=== PATIENT | male | born 1995 | race Caucasian/White ===

== ENCOUNTER 2025-03-20 11:24 | Emergency (ER) | payer MEDICAID ==
[~2025-03-20] VITALS: Ht 180.3 cm; Wt 109.8 kg
[~2025-03-20 11:24] MED LIST: HYDR-4383 PO
[2025-03-20 11:25] VITALS: BP 168/95; PULSE 77; RESP 18; TEMP 97.9; O2SAT 99
--- NOTE | 2025-03-20 11:34 | Physician Documentation ---
History of Present Illness ~ Chief Complaint: Flu Symptoms Stated Complaint: FLU SYMPTOMS Time Seen by MD: 11:34 Primary Medical Doctor: none HPI 29-year-old male presents to the emergency department for evaluation of cough fever congestion diarrhea mild nausea x4 days. Patient reports that he has had intermittent fevers and chills recent exposure to COVID. Medication Reconciliation Allergies: Coded Allergies: No Known Allergies (Unverified , 03/20/25) Scheduled PRN Hydrocodone/Acetaminophen ([place] 5-325 Tablet), 1 TABLET PO Q4H PRN for pain Past Medical History Past Medical History: No Pertinent History Past Surgical History: no surgical history Alcohol Use: Occasionally Drug Use: none Lives In: Home Occupation: unemployed Review of Systems ROS As stated above in the HPI, otherwise all systems are reviewed and negative. Physical Exam Vital Signs: Temperature: 97.9, Source: Temporal, Heart Rate: 77, Respiratory Rate: 18, BP: 168/95, Pulse Oximetry: 99, Weight: 109.750 Oxygen Flow Rate: 0 Physical Exam VITALS: Reviewed and as above. GENERAL: Alert, no apparent distress. HEENT: Normocephalic, atraumatic, PERRL, EOMI, dry mucosa, no erythema RESPIRATORY: Lungs clear, normal breath sounds, no respiratory distress. CHEST: No accessory muscle use, no retractions CV: Regular rate, rhythm, no edema, no murmur, No: JVD GI: Soft, non-tender, bowels sounds present, no rebound, guarding, or rigidity BACK: No CVA tenderness, or swelling MUSCULOSKELETAL No deformities, no edema SKIN: Warm and dry, no rash NEURO: Oriented x4, No motor or sensory deficit PSYCH: Normal mood and affect, no agitation Progress Results/Orders Results/Orders Vital Signs 03/20/25 11:25 Temp 97.9 Pulse 77 Resp 18 B/P (MAP) 168/95 Pulse Ox 99 O2 Flow Rate 0 Laboratory Tests Test 03/20/25 12:35 SARS-CoV-2 Antigen (Rapid) Negative Medical Decision Making Findings This patient presents with symptoms suspicious for likely viral upper respiratory infection. Based on history and physical doubt sinusitis. COVID test was negative. Do not suspect underlying cardiopulmonary process. I considered, but think unlikely, dangerous causes of this patients symptoms to include ACS, CHF or COPD exacerbations, pneumonia, pneumothorax. Patient is nontoxic appearing and not in need of emergent medical intervention. Patient told to self isolate at home until symptoms subside for 72 hours, and that they will call with the COVID results. Patient will follow up with primary care provider if needed. Patient will return to the emergency department if any worsening of his current symptoms for any additional concerning symptoms present, Differential Dx:Considerations: Include: CVA, Dehydration, Drug toxicity, Electrolyte imbalance, Influenza, Meningitis, Mycardial infarction, Pneumonia, Pneumonitis, Pulmonary embolus, Pyelonephritis, Respiratory failure, Sepsis, UTI, Viral Syndrome, Other Departure Disposition: 01 HOME / SELF CARE / HOMELESS Impression: Primary Impression: Viral infection Additional Impression: URI (upper respiratory infection) Condition: Stable Discharge Instructions: Upper Respiratory Infection, Adult, Upper Respiratory Infection, Adult, [id number] Additional Instructions: Evaluated for symptoms of viral upper respiratory infection. COVID screen is negative. Rest fluids Tylenol ibuprofen as needed for fevers or discomfort. Follow up with your primary care provider. Please return to the emergency department give any worsening recurrent symptoms or any additional concerning symptoms present. Departure Forms: Excuse form Work or School Excused From: Work Excuse beginning now through the following date: Mar 18, 2025 May Return but still avoid physical Activity from now until: Mar 22, 2025 May Return to full physical activity as of: Mar 20, 2025 Additional Instructions: Please excuse the patient from work from Monday the to Monday the . Referrals: NO PRIMARY CARE PROVIDER (PCP) Education Educated: Patient Educated regarding: treatment, need for follow up Signature Scribe Signature: Scribed for Hao Phillipsp by RYAN Burnett . 03/22/25 12:55 Attestation: Scribed for Hao Phillips [employer] Operator by RYAN Burnett . 03/22/25 12:55 HAO PHILLIPS Mar 20, 2025 11:34
== END 2025-03-20 13:39 | disposition home or self-care (01) ==
LOC: ER 11:24
DX: J06.9 Acute upper respiratory infection, unspecified (principal); R19.7 Diarrhea, unspecified; R11.0 Nausea; Z56.0 Unemployment, unspecified; Z72.89 Other problems related to lifestyle; Z20.822 Contact with and (suspected) exposure to COVID-19
CPT/HCPCS: 36415; 87811; 99283